=== PATIENT | male | born 1950 | race Caucasian/White ===

== ENCOUNTER → 2021-04-30 10:41 | Outpatient (CLI) | payer MEDICARE, OTHER, SELFPAY ==
[2021-04-30 19:20] LABS: Prostate Specific Antigen 1.04 ng/mL (0.10-4.00)
== END ==
PROVIDERS: Family Provider Family Medicine; PCP Family Medicine; Visit Provider Radiology Radiation Oncology
DX: C61 Malignant neoplasm of prostate (principal)
CPT/HCPCS: 84153